=== PATIENT | female | born 1985 | race Two or more races ===

== ENCOUNTER 2017-01-12 14:24 | Inpatient (IN) | payer SELFPAY ==
[~2017-01-12] VITALS: Ht 160 cm; Wt 73.7 kg
[2017-01-12] MEDS ORDERED: PROZAC20 M3 PO (14:46)
[2017-01-12 15:05] LABS: BASO % 0.2 % (0-2); EOS % 0.9 % (0-7); EOSINOPHIL ABSOLUTE COUNT 0.1 tho/cmm (0.0-0.7); HCT-HEMATOCRIT 40.9 % (34.0-49.0); HGB-HEMOGLOBIN 13.8 gm/dl (12.0-15.5); IMMATURE GRANULOCYTES ABSOLUTE 0.04 tho/cmm (0-0.03); IMMATURE GRANULOCYTES PERCENT 0.3 % (0-0.3); LYMPH % 12.8 % (20-45); LYMPH ABSOLUTE COUNT 1.6 tho/cmm (0.8-4.5); MCH (MEAN CORPUSCULAR HGB) 29.7 pg (28.0-32.0); MCHC MEAN CORPUSCULAR HGB CONC 33.7 % (32.0-36.0); MCV (MEAN CELL VOLUME) 88.1 fl (82.0-96.0); MEAN PLATELET VOLUME 10.9 cmc (9.4-12.4); MONO % 7.5 % (0-12); NEUTROPHIL ABSOLUTE COUNT 10.1 tho/cmm (1.6-8.0); NEUTROPHIL-AUTOMATED 10.1 tho/cmm (1.6-8.0); NEUTROPHILS % 78.3 % (40-80); PLATELET COUNT 248 tho/cmm (150-450); RED BLOOD COUNT 4.64 mil/cmm (4.00-5.20); WHITE BLOOD COUNT 12.8 tho/cmm (4.0-10.0)
[2017-01-12] MEDS ORDERED: ADDERALL 30 MG30 M2 PO (15:15)
[2017-01-12] MEDS ORDERED: XANAX1 M1 PO (15:15)
[2017-01-12] MEDS ORDERED: WELLBUTRIN XL150 M1 PO (15:15)
[2017-01-12 15:23] LABS: ALB/GLOB RATIO 0.8 (0.8-2.0); ALBUMIN 3.6 g/dl (3.5-5.0); ALKALINE PHOSPHATASE 75 U/L (33-138); ALT/SGPT 18 U/L (12-78); ANION GAP 14 mmol/L (0-20); AST/SGOT 28 U/L (10-40); BILIRUBIN,TOTAL 0.8 mg/dl (0-1.5); BLOOD UREA NITROGEN 10 mg/dl (6-24); CALCIUM 8.4 mg/dl (8.5-10.5); CARBON DIOXIDE-VENOUS 22 mmol/L (22-32); CHLORIDE 108 mmol/l (96-110); CREATININE 0.98 mg/dl (0.50-1.10); GLUCOSE 101 mg/dL (70-110); LIPASE 754 U/L (73-393); POTASSIUM 3.9 mmol/L (3.7-5.1); SODIUM 140 mmol/L (135-145); eGFR VALUE FOR BLACK 90 mL/Min
[2017-01-12 17:51] LABS: URINE BILIRUBIN NEGATIVE (NEG); URINE BLOOD SMALL (NEG); URINE GLUCOSE (UA) NEGATIVE (NEG); URINE KETONE MODERATE (NEG); URINE LEUKOCYTE ESTERASE NEGATIVE (NEG); URINE NITRITE NEGATIVE (NEG); URINE PROTEIN NEGATIVE (NEG); URINE SPECIFIC GRAVITY 1.015 (1.003-1.030)
[2017-01-12 17:52] LABS: URINE APPEARANCE CLEAR; URINE COLOR YELLOW
[2017-01-12 18:00] LABS: URINE BACTERIA 1+
[2017-01-13 05:11] LABS: BASO % 0.1 % (0-2); HCT-HEMATOCRIT 35.1 % (34.0-49.0); HGB-HEMOGLOBIN 11.8 gm/dl (12.0-15.5); IMMATURE GRANULOCYTES ABSOLUTE 0.01 tho/cmm (0-0.03); IMMATURE GRANULOCYTES PERCENT 0.1 % (0-0.3); LYMPH % 8.7 % (20-45); LYMPH ABSOLUTE COUNT 0.6 tho/cmm (0.8-4.5); MCH (MEAN CORPUSCULAR HGB) 29.2 pg (28.0-32.0); MCHC MEAN CORPUSCULAR HGB CONC 33.6 % (32.0-36.0); MCV (MEAN CELL VOLUME) 86.9 fl (82.0-96.0); MEAN PLATELET VOLUME 11.3 cmc (9.4-12.4); MONO % 6.1 % (0-12); MONOCYTE ABSOLUTE COUNT 0.4 tho/cmm (0.0-1.2); PLATELET COUNT 244 tho/cmm (150-450); RED BLOOD COUNT 4.04 mil/cmm (4.00-5.20)
[2017-01-13 05:26] LABS: ALB/GLOB RATIO 0.9 (0.8-2.0); ALBUMIN 3.1 g/dl (3.5-5.0); ALKALINE PHOSPHATASE 61 U/L (33-138); ALT/SGPT 17 U/L (12-78); ANION GAP 13 mmol/L (0-20); AST/SGOT 33 U/L (10-40); BILIRUBIN,TOTAL 0.7 mg/dl (0-1.5); BLOOD UREA NITROGEN 12 mg/dl (6-24); CALCIUM 7.6 mg/dl (8.5-10.5); CARBON DIOXIDE-VENOUS 20 mmol/L (22-32); CHLORIDE 108 mmol/l (96-110); CREATININE 0.79 mg/dl (0.50-1.10); GLUCOSE 99 mg/dL (70-110); POTASSIUM 3.7 mmol/L (3.7-5.1); SODIUM 137 mmol/L (135-145); eGFR VALUE FOR BLACK >90 mL/Min
[2017-01-15] MEDS ORDERED: PHENERGAN12.5 M2 PO (10:13)
[2017-01-15] MEDS ORDERED: PROTONIX40 M2 PO (10:13)
== END 2017-01-15 14:15 | DRG 392 ==
LOC: EDMED → EDBD 14:24 → EDMED 14:24 → EMR2 18:43 → PCUA 18:43
PROVIDERS: Emergency Medicine; ADMIT Internal Medicine
DX: A08.4 Viral intestinal infection, unspecified (principal); F32.9 Major depressive disorder, single episode, unspecified; A74.9 Chlamydial infection, unspecified; B37.9 Candidiasis, unspecified; F12.90 Cannabis use, unspecified, uncomplicated; R07.89 Other chest pain; F41.9 Anxiety disorder, unspecified; F90.9 Attention-deficit hyperactivity disorder, unspecified type
CPT/HCPCS: J1170; J2270; J2405; J2550; J7030; Q9967